=== PATIENT | female | born 1990 | race Caucasian/White ===

== ENCOUNTER 2018-06-21 20:11 | Observation (INO) | payer MEDICAID ==
[2018-06-21] MEDS ORDERED: NS 1,000 ML IV ONE (20:45)
[2018-06-21] MEDS: fentaNYL 100 MCG/2 ML INJ IVP ONE ×2 (21:08→21:20)
--- NOTE | 2018-06-21 21:12 | EDPHY ---
General Time Seen by Provider: 06/21/18 20:24 Narrative: CLINICAL IMPRESSION: Closed, spiral fracture of left tibia, displaced, closed rotated fracture of left fibula ASSESSMENT/PLAN: 28-year-old female presents to the emergency department after she slipped on the ice tonight landing wrong on her left leg. Patient has obvious deformity to the leg with no open wound. Distal neurovascular exam is intact. No other injuries and she did not hit her head. X-rays confirm both a closed spiral fracture of the diaphysis of the left tibia as well as a closed, rotated, displaced fracture of the left fibula. Patient has been NPO since noon and was kept NPO. IV established, she declined IV analgesics. She was placed in a posterior long-leg splint. X-rays reviewed with Dr. Connolly who is in the operating room and I spoke with his nurse who reports he will plan on taking the patient to the operating room within the next couple hours. Patient kept comfortable in the emergency department in stable condition pending discharge to the operating room. DIFFERENTIAL DX: Differential includes but not limited to acute fracture, strain/sprain, joint dislocation, soft tissue contusion ED PROCEDURES: Procedure: Splint placement. A left posterior long-leg splint was applied to left leg by turfgrass technician, supervised by myself. After application of the splint I returned and re- examined the patient. The splint was adequately immobilizing the joint and distal to the splint the patient's circulation and sensation was intact. ED COURSE: 9:00 p.m.: I discussed patient's x-ray results with OR staff. Dr. Connolly is in the operating room. He has already visualized x-rays and plans to take the patient to the operating room tonight. Patient will be kept NPO. She will placed in a posterior long-leg splint. Plan to keep her in the emergency department until she goes to the operating room. The patient updated on Dr. Connolly his recommendation. She is declining IV narcotics at this time. CHIEF COMPLAINT: Left leg pain HPI: 28-year-old female presents to the emergency department after slipping on the ice tonight and falling with her left leg behind her. She is unable to bear weight on the leg. She reports no loss of sensation to the foot or toes. No prior Ortho injury or surgery to the leg. No reported knee, femur, or hip pain. She did not hit her head or have any other injury. PAST MEDICAL HISTORY: None reported Pertinent Past Surgical History: None reported Social History: Otherwise healthy, and p.o. As of noon today REVIEW OF SYSTEMS: All other systems negative Constitutional: No fever, no chills Musculoskeletal: Positive deformity to left lower leg, denies joint pain Skin: No rashes, color change or open wounds. Neurological: No sensory loss or weakness. PHYSICAL EXAM: General Appearance: Alert, oriented, appropriate for age, cooperative, NAD, well hydrated, non-toxic appearing, VSS, tremulous, appears uncomfortable, declining IV analgesics no hypoxia. Neurological: Alert and oriented x 3, normal sensation to left lower leg, foot and toes Skin: Warm, dry, no rashes, no nodules on palpation. Musculoskeletal: Deformity noted to left lower leg. No open wounds. Intact posterior tibialis and pedal pulses. No reproducible pain to palpation of the knee, femur, or hip. Patient reports no other injuries. MEDICAL DECISION MAKING: Patient was seen independently. Secondary supervising physician at time of evaluation was Dr. Starkey. Diagnosis: Left tib-fib fracture. New, requires workup Summary: See assessment and plan for summary of ED visit Independent visualization of images, tracing, or specimens yes. Decision to obtain medical records or history from someone other than the patient: No Review / Summarize previous medical records: None available Discussed patient with another provider: Dr. Connolly via OR staff, Dr. Starkey Patient Progress: Stable for discharge to the operating room. - Diagnostics Imaging Results: Imaging Impressions Tibia/Fibula X-Ray 06/21/18 20:18 Impression: Comminuted spiral fracture of the distal diaphysis of the tibia and mid diaphysis of the fibula with displacement and rotation. - History Smoking Status: Current every day smoker - Objective Vital Signs: Initial Vital Signs Temperature (C) 36.3 C 06/21/18 20:15 Heart Rate 68 06/21/18 20:15 Respiratory Rate 18 06/21/18 20:15 O2 Sat (%) 99 06/21/18 20:15 O2 Delivery Mode Room Air Allergies/Adverse Reactions: No Known Allergies Allergy (Unverified 06/21/18 20:17) Home Medications: Medication Instructions Recorded NK [No Known Home Meds] 06/21/18 Laboratory Results: Laboratory Results 06/21/18 21:11 06/21/18 21:11 06/21/18 06/21/18 21:11 21:11 WBC 18.82 10^3/uL H 10^3/uL (3.80-9.50) RBC 4.10 10^6/uL L 10^6/uL (4.18-5.33) Hgb 13.1 g/dL g/dL (12.6-16.3) Hct 37.9 % L % (38.0-47.0) MCV 92.4 fL fL (81.5-99.8) MCH 32.0 pg pg (27.9-34.1) MCHC 34.6 g/dL g/dL (32.4-36.7) RDW 12.3 % % (11.5-15.2) Plt Count 327 10^3/uL 10^3/uL (150-400) MPV 8.9 fL fL (8.7-11.7) Neut % (Auto) 87.5 % H % (39.3-74.2) Lymph % (Auto) 7.3 % L % (15.0-45.0) [place] % (Auto) 4.3 % L % (4.5-13.0) Eos % (Auto) 0.1 % L % (0.6-7.6) Baso % (Auto) 0.2 % L % (0.3-1.7) Nucleat RBC Rel Count 0.0 % % (0.0-0.2) Absolute Neuts (auto) 16.47 10^3/uL H 10^3/uL (1.70-6.50) Absolute Lymphs (auto) 1.38 10^3/uL 10^3/uL (1.00-3.00) Absolute Monos (auto) 0.81 10^3/uL H 10^3/uL (0.30-0.80) Absolute Eos (auto) 0.02 10^3/uL L 10^3/uL (0.03-0.40) Absolute Basos (auto) 0.03 10^3/uL 10^3/uL (0.02-0.10) Absolute Nucleated RBC 0.00 10^3/uL 10^3/uL (0-0.01) Immature Gran % 0.6 % % (0.0-1.1) Immature Gran # 0.11 10^3/uL H 10^3/uL (0.00-0.10) Sodium 138 mEq/L mEq/L (135-145) Potassium 3.5 mEq/L mEq/L (3.5-5.2) Chloride 108 mEq/L mEq/L (97-110) Carbon Dioxide 20 mEq/l L mEq/l (22-31) Anion Gap 10 mEq/L mEq/L (6-14) BUN 14 mg/dL mg/dL (7-23) Creatinine 0.6 mg/dL mg/dL (0.6-1.0) Estimated GFR > 60 Glucose 134 mg/dL H mg/dL (70-100) Calcium 9.4 mg/dL mg/dL (8.5-10.4) Medications Given: Discontinued Medications Fentanyl (Sublimaze) 50 mcg IVP EDNOW ONE Stop: 06/21/18 20:46 Last Admin: 06/21/18 21:20 Dose: Not Given Sodium Chloride (Ns) 1,000 mls @ 0 mls/hr IV EDNOW ONE; Wide Open PRN Reason: Protocol Stop: 06/21/18 20:46 Last Admin: 06/21/18 21:07 Dose: 1,000 mls Lactated Ringer's (Lr) 1,000 mls @ 0 mls/hr IV ONCE ONE PRN Reason: KVO Stop: 06/21/18 22:20 Last Admin: 06/21/18 22:48 Dose: 1,000 mls Departure - Departure Disposition: To OP Cath/Surgery Clinical Impression: Fracture of lower leg Qualifiers: Encounter type: initial encounter Fracture type: closed Laterality: left Qualified Code(s): S82.92XA - Unspecified fracture of left lower leg, initial encounter for closed fracture
[2018-06-21 21:45] LABS: PLATELET COUNT 327 10^3/uL (150-400)
[2018-06-21] MEDS ORDERED: LR 1,000 ML IV ONE (22:19)
[2018-06-21] MEDS ORDERED: CEFAZOLIN 2 GM/DEXTROSE/100 ML BAG IV ONE (22:59)
[2018-06-21] MEDS ORDERED: PROPOFOL 200 MG/20 ML VIAL ONE (23:23)
[2018-06-21] MEDS ORDERED: fentaNYL 100 MCG/2 ML INJ ONE ×2 (23:23→23:42)
[2018-06-21] MEDS ORDERED: MIDAZOLAM 2 MG/2 ML VIAL IVP ONE (23:24)
[2018-06-21] MEDS ORDERED: LIDOCAINE 2% 5 ML SDV ONE (23:24)
[2018-06-21] MEDS ORDERED: MIDAZOLAM 2 MG/2 ML VIAL ONE (23:24)
[2018-06-21] MEDS ORDERED: ROPIVACAINE HCL 100 MG/20 ML INJ ONE ×2 (23:26)
[2018-06-21] MEDS ORDERED: ONDANSETRON 4 MG/2 ML VIAL ONE (23:57)
[2018-06-21] MEDS ORDERED: DEXAMETHASONE 4 MG/ML VIAL ONE (23:57)
[2018-06-22] MEDS ORDERED: HYDROmorphONE/DILAUDID 2 MG/ML INJ ONE
--- NOTE | 2018-06-22 00:03 | PDANEPAE ---
ANE History of Present Illness left tib/fib fx ANE Past Medical History - Cardiovascular History Hx Hypertension: No Hx Arrhythmias: No Hx Chest Pain: No Hx Coronary Artery / Peripheral Vascular Disease: No Hx CHF / Valvular Disease: No Hx Palpitations: No - Pulmonary History Hx COPD: No Hx Asthma/Reactive Airway Disease: No Hx Recent Upper Respiratory Infection: No Hx Oxygen in Use at Home: No Hx Sleep Apnea: No - Endocrine History Hx Diabetes: No ANE Review of Systems Review of systems is: negative Review of Systems: - Exercise capacity Exercise capacity: >=4 METS ANE Patient History - Allergies Allergies/Adverse Reactions: No Known Allergies Allergy (Unverified 06/21/18 20:17) - Home Medications Home medications: home medication list seen and reviewed Home Medications: NK [No Known Home Meds] 06/21/18 [Last Taken Unknown] - NPO status NPO Since - Liquids (Date): 06/21/18 NPO Since - Liquids (Time): 18:30 NPO Since - Solids (Date): 06/21/18 NPO Since - Solids (Time): 13:30 - Anes Hx Anes Hx: no prior problems - Smoking Hx Smoking Status: Current every day smoker ANE Labs/Vital Signs - Labs Result Diagrams: 06/21/18 21:11 06/21/18 21:11 - Vital Signs Blood Pressure: 115/70 Heart Rate: 78 Respiratory Rate: 18 O2 Sat (%): 97 Height: 154.94 cm Weight: 47.627 kg ANE Physical Exam - Airway Neck exam: FROM Mallampati Score: Class 1 Mouth exam: normal dental/mouth exam - Pulmonary Pulmonary: no respiratory distress - Cardiovascular Cardiovascular: regular rate and rhythym - ASA Status ASA Status: I, E ANE Anesthesia Plan Anesthesia Plan: GA w LMA Regional Anesthesia: single shot NB, adductor canal FNB, popliteal SNB Urgent/Emergent Case: Juan muñoz completed preop but documented later for safe timely pt care
[2018-06-22] MEDS ORDERED: BUPIVACAINE 0.5% 30 ML SDV ONE (00:04)
--- NOTE | 2018-06-22 00:04 | POSTANESTH ---
Post Anesthetic Evaluation Cardiovascular Status: Normal, Stable Respiratory Status: Normal, Stable Level of Consciousness/Mental Status: Can Participate in Eval, Alert and Oriented Pain Control: Adequate, Prn Tx Ordered Nausea/Vomiting Control: Adequate, Prn Tx Ordered Complications Possibly Related to Anesthesia: None Noted
[2018-06-22] MEDS ORDERED: HYDROCODONE/APAP 5/325 TAB PO PRN (00:24)
[2018-06-22] MEDS ORDERED: fentaNYL 100 MCG/2 ML INJ IVP PRN (00:24)
[2018-06-22] MEDS ORDERED: ACETAMINOPHEN 500 MG TAB PO PRN (00:24)
[2018-06-22] MEDS ORDERED: PROMETHAZINE HCL 25 MG/ML INJ IVP PRN ×2 (00:24→01:44)
[2018-06-22] MEDS ORDERED: ALBUTEROL 3 ML DEYVIAL IH PRN (00:24)
[2018-06-22] MEDS ORDERED: NALOXONE HCL 0.4 MG/ML INJ IVP PRN (00:24)
[2018-06-22] MEDS ORDERED: ONDANSETRON 4 MG/2 ML VIAL IVP PRN ×2 (00:24→01:44)
[2018-06-22] MEDS ORDERED: oxyCODONE IR 5 MG TAB PO PRN ×2 (00:24→01:44)
[2018-06-22] MEDS ORDERED: LR 500 ML IV PRN (00:24)
[2018-06-22] MEDS ORDERED: HYDROmorphONE/DILAUDID 2 MG/ML INJ IVP PRN (00:24)
--- NOTE | 2018-06-22 01:43 | POSTOPPROG ---
Post Op Note Date of Operation: 06/22/18 Surgeon: Roxy Connolly Anesthesia: LMA, Other (Specify) Pre-op Diagnosis: l tibia fx Procedure: l tibia im yan Inf/Abcess present in the surg proc area at time of surgery?: No Depth: Deep Incisional (Fascial) EBL: 100-500
[2018-06-22] MEDS ORDERED: PROMETHAZINE HCL 25 MG SUPPR PR PRN (01:44)
[2018-06-22] MEDS ORDERED: TEMAZEPAM 15 MG CAP PO PRN (01:44)
[2018-06-22] MEDS ORDERED: METOCLOPRAMIDE 10 MG/2 ML VIAL IVP PRN (01:44)
[2018-06-22] MEDS ORDERED: DIPHENOXYLATE/ATROPINE LOMOTIL 1 TAB PO PRN (01:44)
[2018-06-22] MEDS ORDERED: TAPENTADOL HCL 50 MG TAB PO PRN (01:44)
[2018-06-22] MEDS ORDERED: ONDANSETRON DISINTEGRATING 4 MG TAB PO PRN (01:44)
[2018-06-22] MEDS ORDERED: LACTULOSE 20 GM/30 ML UDCUP PO PRN (01:44)
[2018-06-22] MEDS ORDERED: CYCLOBENZAPRINE 10 MG TAB PO PRN (01:44)
[2018-06-22] MEDS ORDERED: BISACODYL 10 MG SUPP PR PRN (01:44)
[2018-06-22] MEDS ORDERED: POLYETHYLENE GLYCOL 3350 17 GM PKT PO PRN (01:44)
[2018-06-22] MEDS ORDERED: MAGNESIUM HYDROXIDE 30 ML UDCUP PO PRN (01:44)
[2018-06-22] MEDS ORDERED: diphenhydrAMINE 25 MG CAP PO PRN (01:44)
[2018-06-22] MEDS ORDERED: LR 1,000 ML IV SCH (02:00)
--- NOTE | 2018-06-22 02:18 | GOP ---
[f rep st] OPERATIVE REPORT DATE OF OPERATION: 06/21/2018 SURGEON: Roxy Connolly MD ANESTHESIA: LMA, with a popliteal and saphenous nerve block per surgeon's request. PREOPERATIVE DIAGNOSIS: Left tibia and fibular fracture. POSTOPERATIVE DIAGNOSIS: Left tibia and fibular fracture. PROCEDURE PERFORMED: Left tibia intramedullary yan with fluoroscopy. FINDINGS: INDICATIONS: This is a 28-year-old female, who slipped on ice earlier this evening. Leg got pinned behind her. She had pain and deformity of the leg and was brought to the emergency room diagnosed wi th a tibia and fibular fracture on the left side. She was brought to the operating room as soon as t carmelo was available. DESCRIPTION OF PROCEDURE: The patient was brought to the operating room after the left side had been identified as correct side by the patient, nurse and physician. Once in the operating room, she was given a block with popliteal nerve as well as saphenous nerve and then placed under anesthesia using an LMA. Once asleep, tourniquet was placed around the upper portion of the left thigh, and the left lower extremity sterilely prepped and draped in the usual fashion using GSI solution. Once prepped and draped, the limb was exsanguinated, tourniquet inflated to 250 mmHg. A linear incision was made centered over the patellar tendon from the tibial tubercle to the midportion of the patella with gladys p dissection carried down through the skin and subcutaneous layers. Dissection was carried medially and the paratenon was incised on the medial portion of the patellar tendon in order to gain access to the bone just posterior to the patellar tendon without violating the actual knee joint itself. A gu idewire was placed within the soft bone in this area and was checked under fluoroscopy to ensure prop er positioning. Once it was noted to be in proper position, a cannulated awl was passed over the jasmine dewire in order to gain large enough access to gain access to the medullary cavity of the tibia. Onc e the awl had been passed and removed, and the original guidewire removed, the flexible guidewire was passed in the proximal portion of the tibia, passed across the fracture site and into the distal tib ia until hitting the physeal scar. The fracture was reduced in order to measure it to length. Once the length was measured, it was found to be 300 mm. Sequential reamers were then used up to 9.5 mm r eamer noted to have good chatter of the midportion of the tibia. Therefore, an 8 x 300 tibial yan fr Instant Information was passed over the guidewire. Once at an adequate depth as measured by fluoroscopy, 2 pr oximal screws were placed from medial to lateral in the proximal tibia in the static holes. The prox imal insertion apparatus was then removed after the guidewire had been removed. The knee was able to be extended at that point. Fluoroscopy was brought from the lateral position until achieving perfec t circles. Two incisions were then made down by the ankle. Drill holes were made from medial to lat eral and screws were placed in the static hole associated with the distal portion of the tibial yan. Once completed, all wounds were thoroughly irrigated with antibiotic solution. 0 Vicryl suture was used to close the peritenon associated with the tibia. 2-0 Vicryl was used for the subcutaneous laye rs, 3-0 V-Loc suture was used for the patellar wound, and the screw sites were sewn with 3-0 nylon dutta ture in a running subcuticular stitch. The wounds were dressed with Steri-Strips, Xeroform, 4 x 4, a nd Tegaderm. The patient was completely undraped in the operating room, had tourniquet removed from the thigh. It had been released at 9 minutes prior to doing any reaming. She had a boot placed on t he left lower extremity. She was then woken up, extubated, transferred onto a stretcher, and sent to recovery room in good condition. TOURNIQUET TIME: 9 minutes. /[id number]/MODL
--- NOTE | 2018-06-22 02:18 | GHP ---
[f rep st] HISTORY AND PHYSICAL DATE OF ADMISSION: 06/22/2018 CURRENT COMPLAINT: Left leg pain. HISTORY OF PRESENT ILLNESS: This is a 28-year-old female who slipped on the ice catching her leg ana eath her. She had pain and deformity of the leg and was brought to the emergency room and diagnosed with a tib-fib fracture. She lists no drug allergies. No medications. She has no medical or surgical history. PHYSICAL EXAMINATION: HEENT: Pupils equal, round, react to light. CHEST: Clear to auscultation. HEART: Regular rate and rhythm. ABDOMEN: Soft and nontender. EXTREMITIES: The left lower extremi ty is neurologically intact to the dorsal, lateral, and plantar portions of the foot with EHL and FHL remaining intact to the large toe. IMAGING STUDIES: X-ray exam reveals a long spiral fracture of the tibia as well as a comminuted frac ture of the midportion of the fibula. ASSESSMENT/PLAN: The patient is status post left tibia and fibular fracture. Options were discussed with the patient including conservative versus operative treatment. She would prefer operative zahida tment. She will therefore be brought to the operating room to undergo a left tibial nail as soon as time is available. /[id number]/MODL
[2018-06-22] MEDS: ACETAMINOPHEN 325 MG TAB PO SCH ×3 (06:28→17:35)
[2018-06-22] MEDS: traMADol 50 MG TAB PO SCH ×3 (06:29→17:35)
[2018-06-22] MEDS: ceFAZolin 2 GM/DEXTROSE 100 ML IV SCH ×2 (06:29→13:06)
[2018-06-22 07:55] VITALS: BP 108/55
[2018-06-22] MEDS ORDERED: SENNOSIDES/DOCUSATE SODIUM TAB PO SCH (09:00)
--- NOTE | 2018-06-22 09:37 | ASMTCMCOM ---
CM Note CM Note Notes: Chart reviewed for discharge planning purposes, 28 year old female slipped on ice and sustained fracture of left Tib/fib. Surgically repaired. Needs to be determined. No therapy notes yet. CM to follow for needs. Plan: TBD Date Signed: 06/22/2018 09:36 AM Electronically Signed By:Fozia Lino RN
--- NOTE | 2018-06-22 15:16 | SOAPPROG ---
SOAP Progress Note Assessment/Plan: Assessment: Plan: Subjective: states she has pain when the leg is dependent dressing C&D except for ankle wound with sanfg drainage block is still working so neg to min sensation to dorsal/lat/plantar foot boot in place dc to home and fu in office Objective: Vital Signs Temp Pulse Resp BP Pulse Ox 36.7 C 51 L 12 108/55 L 96 06/22/18 07:54 06/22/18 07:54 06/22/18 07:54 06/22/18 07:54 06/22/18 07:54 Laboratory Results 06/22/18 04:40 06/21/18 06/22/18 06/23/18 05:59 05:59 05:59 Intake Total 400 900 Output Total 300 850 Balance 100 50 ICD10 Worksheet Patient Problems: Problems Problem Status Onset Fracture of lower leg Acute
--- NOTE | 2018-06-22 15:39 | ASMTLACE ---
LACE Length of stay for Answers: Less than 1 day current admission Comorbidities - select Answers: History of falls all that apply # of Emergency department Answers: 1-2 visits in the last 6 months Score: 4 Date Signed: 06/22/2018 03:38 PM Electronically Signed By:Fozia Lino RN
[2018-06-22] MEDS ORDERED: FAMOTIDINE 20 MG TAB PO SCH (21:00)
[2018-06-23] MEDS ORDERED: RIVAROXABAN 10 MG TAB PO SCH (09:00)
== END 2018-06-22 18:02 | disposition home or self-care (01) ==
LOC: FSGY 20:11 → F1N 06-22 02:07
PROVIDERS: ADMIT Orthopaedic Surgery; ATTEND Orthopaedic Surgery
PROC: 0QSH06Z Reposition Left Tibia with Intramedullary Internal Fixation Device, Open Approach (ICD-10-PCS; principal; 2018-06-22)
PROC: 2W3MX1Z Immobilization of Left Lower Extremity using Splint (ICD-10-PCS; 2018-06-22)
PROC: BW1C1ZZ Fluoroscopy of Lower Extremity using Low Osmolar Contrast (ICD-10-PCS; 2018-06-22)
DX: S82.245A Nondisplaced spiral fracture of shaft of left tibia, initial encounter for closed fracture (principal); S82.452A Displaced comminuted fracture of shaft of left fibula, initial encounter for closed fracture; W00.0XXA Fall on same level due to ice and snow, initial encounter; F17.200 Nicotine dependence, unspecified, uncomplicated
CPT/HCPCS: 27759; 29505; 73590; 97161; 97165; 99285; G0378; C1713; J0690; J1100; J1170; J2250; J2405; J2704; J2795; J3010